=== PATIENT | male | born 1950 | race Caucasian/White ===

== ENCOUNTER → 2017-01-30 | Day surgery (SDC) | payer OTHER ==
[~2017-01-30] VITALS: Ht 190.5 cm; Wt 99.8 kg
[~2017-01-30] MED LIST: 0.9% Sodium Chloride 1,000 ML IV SCH; MULT-666 PO; Sodium Chloride LOK Flush 10 mL Syringe IV PRN; TEST200V20 IM; VARD20TA30 PO; fentaNYL-PF 50 mCg/mL 2 mL Inj IVPUSH PRN
[2017-01-30 09:40] VITALS: BP 147/88; PULSE 65; RESP 15; O2SAT 99
[2017-01-30 10:40] VITALS: BP 150/81; PULSE 65; RESP 14; O2SAT 98
[2017-01-30 10:51] VITALS: BP 135/73; PULSE 84; RESP 16; O2SAT 98
[2017-01-30 10:57] VITALS: BP 135/73; PULSE 62; RESP 16; O2SAT 97
--- NOTE | 2017-01-30 12:07 | ENDO ---
[address] [address] ENDOSCOPY PROCEDURE PATIENT: FILIPE CAPONE : 1950 MR#: [id number] ADMIT: 01/30/2017 JOB ID: [id number] DATE: 01/30/2017 PRIMARY PROVIDER: Simon Nuñez MD PROCEDURE: Colonoscopy with hot snare polypectomy and cold forceps polypectomy. INDICATIONS: A 66-year-old male with a personal history of adenomatous colon polyps returning for surveillance. EQUIPMENT: PCF H 180 AL. SEDATION: Versed 6 mg, 125 mcg fentanyl. COMPLICATIONS: None identified. BOWEL PREPARATION: Fair, adequate exam. PROCEDURE INFORMATION: After the risks and benefits were explained, written and verbal informed consent was obtained. The patient was brought into the endoscopy suite and placed into the left lateral decubitus position. Sedation was achieved using the above-stated medications with the addition of oxygen via nasal cannula. A digital rectal examination was accomplished. No significant pathology appreciated. The scope was introduced into the rectum and advanced under direct visualization to the level of the cecum, as identified by the appendiceal orifice and ileocecal valve. The scope was slowly withdrawn to carefully examine the mucosa for any defects or lesions. Retroflexed views were accomplished in the rectum. The colon was decompressed and the scope removed from the patient, who tolerated the procedure well. FINDINGS: In the ascending colon there was an approximately 6-7 mm polyp removed with hot snare. There were four other diminutive polyps throughout the colon, including one removed from within the retroflexed position from the rectum. Some diverticulosis was seen in the left colon. ENDOSCOPIC DIAGNOSES: 1. Hemorrhoids. 2. Diverticulosis. 3. Polyps. RECOMMENDATIONS: 1. Await histopathology. 2. Repeat colonoscopy three years.
--- NOTE | 2017-02-01 11:40 | PATH ---
SURGICAL PATHOLOGY Attending Physician:Ryann Beyer CASE STATUS: Signed Out PATIENT NAME: FILIPE CAPONE. PID: [id number] : 1950 DATE COLLECTED:01/30/2017 20:44 SPECIMEN: Colon, Polyp CLINICAL HISTORY: 1). COLON POLYPS FINAL DIAGNOSIS: Colon Polyps, Biopsies: Tubular adenoma (4 of 7 pieces). Hyperplastic polyp (2 of 7 pieces). ICD10: D12.6 GROSS DESCRIPTION: The specimen is received in one formalin filled container labeled with the patient's name, sublabeled "colon polyps" and consists of multiple portions of tissue which aggregate to 0.5 x 0.4 x 0.2 CM. The specimen is entirely submitted in one cassette. 01/30/2017DC ICD-9 CODES: CPT CODES: 1: 28704 Electronically Signed Out Magnus Souza MD, Ph.D. [facility] [address], [place] [address] Technical component performed at [facility], [facility] [address], [address]
== END | disposition home or self-care (01) ==
LOC: END 02:25
PROVIDERS: ATTEND Internal Medicine Gastroenterology
DX: Z12.11 Encounter for screening for malignant neoplasm of colon (principal); D12.2 Benign neoplasm of ascending colon; K63.5 Polyp of colon; K57.30 Diverticulosis of large intestine without perforation or abscess without bleeding; K64.8 Other hemorrhoids; E29.1 Testicular hypofunction; Z86.010 Personal history of colon polyps; Z79.899 Other long term (current) drug therapy; Z87.891 Personal history of nicotine dependence